=== PATIENT | male | born 1995 | race Caucasian/White ===

== ENCOUNTER 2018-07-30 01:45 | Emergency (ER) | payer OTHER, SELFPAY ==
[2018-07-30 01:51] VITALS: BP 114/70; PULSE 104; RESP 18; TEMP 36.8; O2SAT 99; BMI 24.3
[2018-07-30 03:25] LABS: Influenza A and B by PCR Rapid Negative (Negative)
[2018-07-30] MEDS: AMOXICILLIN 250 MG CAPSULE 500 MG PO (03:26)
--- NOTE | 2018-07-30 03:27 | ED_ITS ---
HPI - URI/Sore Throat General Chief Complaint: Upper Respiratory Symptoms Stated Complaint: cough, swollen throat, hard to breathe Time Seen by Provider: 07/30/18 02:17 Source: patient Mode of arrival: ambulatory Limitations: no limitations History of Present Illness HPI Narrative: Patient complains of sore throat, fever, chills, and headache on and off for the last week, but worse over the last few days. Patient denies nausea vomiting. He denies diarrhea. The patient denies rhinorrhea or cough. No other complaints this time. Patient states that swallowing makes the pain worse, and nothing makes it better. Pain is 6/10 currently. Related Data Previous Rx's Medication Instructions Recorded amoxicillin 500 mg PO TID #14 cap 07/30/18 Review of Systems Constitutional Reports chills, Reports fever(s), Reports headache(s), Denies lethargy and Denies weakness Eyes Denies change in vision, Denies eye discharge, Denies irritation and Denies loss of vision ENT Ears, Nose, Mouth, and Throat: Denies change in voice, Reports headache(s), Denies neck pain and Reports sore throat Cardiovascular Denies chest pain, Denies irregular heart rhythm, Denies lightheadedness, Denies palpitations, Denies dyspnea, Denies dyspnea on exertion and Denies orthopnea Respiratory Denies cough, Denies dyspnea, Denies dyspnea on exertion and Denies wheezing Gastrointestinal Gastrointestinal: Denies abdominal pain, Denies change in bowel habits, Denies diarrhea, Denies nausea and Denies vomiting Genitourinary Denies hematuria, Denies flank pain, Denies urinary incontinence and Denies urinary urgency Musculoskeletal Denies neck pain Integumentary/Breasts Denies pruritus, Denies erythema, Denies rash and Denies wounds Neurologic Denies confusion, Reports headache(s), Denies loss of vision and Denies weakness Psychiatric Denies anxiety, Denies confusion, Denies depression, Denies homicidal ideation and Denies suicidal ideation Endocrine Denies palpitations Hematologic/Lymphatic Denies easy bruising Allergic/Immunologic Denies wheezing FOR[facility], [facility] Medical History Healthy adult (Acute) Surgical History No pertinent past surgical history (Acute) Social History Smoking Status: Never smoker Social History Smoking Status: Never smoker Exam Initial Vital Signs Initial Vital Signs: Vital Signs Temperature 98.2 F 07/30/18 01:51 Pulse Rate 104 H 07/30/18 01:51 Respiratory Rate 18 07/30/18 01:51 Blood Pressure 114/70 07/30/18 01:51 Pulse Oximetry 99 07/30/18 01:51 Const General: cooperative and well developed Nutritional Appearance: well nourished Orientation: alert, awake, oriented x3 and not confused [facility] Head: normocephalic and atraumatic Ears: external ears normal Nose: external nose normal and No nasal discharge Face and sinus: face symmetric and No dry mucous membranes Mouth: oral mucosae normal and moist mucous membranes Teeth and gingiva: dentition normal Throat: uvula midline, abnormal tonsil (Bilateral erythema and enlargement; no exudate), posterior oropharynx abnormal (Erythema), uvular edema (Mild, with erythema) and other Eyes General: appearance normal, both eyes and all related structures Eyelids: eyelids normal Conjunctivae: conjunctivae normal Sclera: sclerae normal Pupils: PERRL EOM: EOM intact bilaterally Neck Neck: normal visual inspection, trachea midline, No lymphadenopathy, No midline deformity and No JVD Lymphatic: No lymphedema Chest Chest: normal inspection of the chest Resp Effort & Inspection: normal respiratory effort, able to speak in complete sentences, no respiratory distress and no use of accessory muscles Auscultation: clear to auscultation bilaterally, no rales, no rhonchi and no wheezes Cardio Rate: regular rate Rhythm: regular rhythm Heart Sounds: no click, no gallops, no murmurs and no rubs Pulses: normal peripheral pulses Back/Spine/Pelvis Back: No CVA tenderness Cervical Spine: cervical ROM normal and No pain with cervical ROM Thoracic/Lumbar Spine: thoracic and lumbar spine normal to inspection Skin General: no rashes or lesions noted, No jaundice and No petechiae Neuro General: alert, oriented x3, gait normal and no focal motor deficits Speech: speech normal Extrem General: full ROM, no clubbing, cyanosis or edema, no pedal edema and no calf tenderness Psych Appearance: well kempt Mental Status: mental status grossly normal Attitude: cooperative Thought Content: normal and suicidality Judgment: judgment good Course Course Narrative: The patient was worked up with strep swab, and strep test was found to be positive. He was started on amoxicillin in the emergency department. He has Tylenol and ibuprofen at home, and has declined further pain medication. We have discussed the usual indications for return. Orders Ordered: ED Orders 07/30/18 01:50 Influenza A and B by PCR Rapid Stat Discontinued Medications Amoxicillin (Trimox) 500 mg PO NOW ONE Stop: 07/30/18 03:21 Last Admin: 07/30/18 03:26 Dose: 500 mg Vital Signs - 8 hr 07/30/18 01:51 Temperature 98.2 F Pulse Rate 104 H Respiratory Rate 18 Blood Pressure 114/70 Pulse Oximetry 99 MDM - URI/Sore Throat Medical Records Attestation: I reviewed the patient's medical records. Lab Data Attestation: I reviewed the patient's lab results. Lab Results 07/30/18 Range/Units 01:50 Influenza A & B (PCR) Negative (Negative) Point of Care Testing Rapid Strep A Positive Discharge Plan Departure Patient Disposition: Home Clinical Impression: Acute streptococcal pharyngitis Instructions: DI for Strep Throat Prescriptions: New amoxicillin 500 mg capsule 500 mg PO TID Qty: 14 RF: 0 Referrals: [facility] [Provider Group]
[2018-07-30 03:58] VITALS: BP 111/78; PULSE 106; RESP 18; TEMP 36.6; O2SAT 98
== END 2018-07-30 03:58 | disposition home or self-care (01) ==
LOC: ED 03:58
PROVIDERS: Emergency Provider Emergency Medicine
DX: J02.0 Streptococcal pharyngitis (principal)
CPT/HCPCS: 87400; 87880; 99282; 99283